=== PATIENT | male | born 1990 | race African-American/Black ===

== ENCOUNTER 2017-11-13 07:14 | Emergency (ER) | payer BC ==
[~2017-11-13] VITALS: Ht 170.2 cm; Wt 100.0 kg
[2017-11-13 07:49] VITALS: BP 123/70
[2017-11-13] MEDS ORDERED: ACETAMINOPHEN 500MG TABLET PO ONE (08:45)
== END 2017-11-13 09:32 | disposition home or self-care (01) ==
LOC: ER 07:25
DX: J06.9 Acute upper respiratory infection, unspecified (principal)
CPT/HCPCS: 99282